=== PATIENT | female | born 1950 | race Caucasian/White ===

== ENCOUNTER 2017-03-06 10:13 | Inpatient (IN) | payer OTHER, MEDICARE ==
[2017-01-29 09:02] VITALS: Ht 157.5 cm; Wt 58.2 kg
--- NOTE | 2017-01-29 09:29 | PAT Medication Instructions ---
Service Date Jan 29, 2017. Current Home Medication List Aspirin (Aspirin Ec), 325-650 MG PO PRN Medication Instructions For Your Scheduled Surgery - Hold the following medications 10 days prior to surgery: Aspirin (Aspirin Ec), 325-650 MG PO PRN - Take the following medications the morning of surgery with a sip of water: Tylenol (if needed) - Take the following medications as scheduled the night before surgery: Tylenol (if needed) If you have any questions please call us at [phone] or [phone] ( Milly) or [phone]
[2017-01-29 09:42] LABS: BASO % 0.6 %; BASO ABS # 0.03 K/uL (0-0.2); COMPLETE YES; EOS % 1.7 %; HEMATOCRIT 42.9 % (37-47); IG% 0.2 %; LYMPH % 35.1 %; LYMPH ABS # 1.89 K/uL (1.2-3.4); MEAN CORPUSCULAR HEMOGLOBIN 28.9 pg (25-34); MEAN PLATELET VOLUME 9.5 fL (7.4-10.4); MONO % 5.6 %; NEUT % 56.8 %; PLATELET COUNT 281 K/uL (130-400); RED BLOOD COUNT 5.05 M/uL (4.2-5.4); WHITE BLOOD COUNT 5.39 K/uL (4.8-10.8)
--- NOTE | 2017-01-29 09:49 | DIAGNOSTIC IMAGING REPORT ---
CHEST PREADMISSION(PA/LAT) HISTORY: Preop. COMPARISON: Chest 11/01/2014. FINDINGS: The lungs are clear. Cardiac silhouette is normal in size. No pleural effusions. No pneumothorax. IMPRESSION: No acute process. Electronically signed by: Donaldo Saxena M.D. 01/29/2017 9:48 AM Dictated Date/Time: 01/29/2017 9:46 AM
[2017-01-29 09:55] LABS: PROTHROMBIN TIME (PATIENT) 11.1 SECONDS (9.0-12.0)
[2017-01-29 10:04] LABS: BLOOD UREA NITROGEN 18 mg/dl (7-18); BUN/CREATININE RATIO 23.7 (10-20); C-REACTIVE PROTEIN < 0.29 mg/dl (0-0.29); CALCIUM 8.8 mg/dl (8.5-10.1); CARBON DIOXIDE 28 mmol/L (21-32); CHLORIDE 106 mmol/L (98-107); CREATININE 0.74 mg/dl (0.60-1.20); GLUCOSE 91 mg/dl (70-99); POTASSIUM 4.2 mmol/L (3.5-5.1); SODIUM 140 mmol/L (136-145)
--- NOTE | 2017-03-02 23:36 | HISTORY & PHYSICAL EXAMINATION ---
DATE OF ADMISSION: 03/06/2017 CHIEF COMPLAINT: Left knee pain and discomfort. HISTORY OF PRESENT ILLNESS: A 66-year-old female from [place], who presents for treatment for her left knee. She has a long history of left knee pain and discomfort, dating back to over 10 years ago. She did have a right knee replacement at [facility] 6 or 7 years ago and has done relatively well. She was troubled initially, but doing well now. Her left knee pain has just become more incapacitating. It hurts all the time. The more she walks, the more it hurts. It is mostly lateral-sided pain. She cannot do the things she would like to do and would like to have her left knee replaced. She comes here, as she does have a home in [place] as well. PAST MEDICAL HISTORY: Past medical history is significant for gastroesophageal reflux disease. PAST SURGICAL HISTORY: Include right knee replacement 6 to 7 years ago at [facility]. ALLERGIES: None. CURRENT MEDICATIONS: None. SOCIAL HISTORY: A 66-year-old female patient from [place]. Also has a home in [place] area. She is . FAMILY HISTORY: Noncontributory. REVIEW OF SYSTEMS: Negative for diabetes, neurologic problems, vascular problems or bleeding disorders. Denies any chest pain. No shortness of breath. No history of DVT or PE. PHYSICAL EXAMINATION: GENERAL: Reveals a healthy pleasant, middle-aged female. She looks to be in pretty good health. HEENT: Benign. NECK: Supple. No lymphadenopathy. LUNGS: Clear to auscultation. HEART: Regular rate and rhythm. ABDOMEN: Soft, nontender, nondistended. EXTREMITIES: Grossly neurovascularly intact, except as follows: Examination of the left lower extremity reveals the patient walks with valgus alignment to her left knee. It goes into further valgus with weightbearing. Range of motion is 0-120. No instability. She has a little subluxation of her patella with terminal knee extension and a positive J-sign. X-RAYS: X-rays of the left knee were reviewed. It shows advanced left lateral compartment DJD. She has got a valgus aligned knee. She has got complete loss of her lateral joint space. The patella was pretty well centered in the trochlea. She does have an uncemented right knee replacement, it looks okay. There might be a little bit of polyethylene wear. ASSESSMENT: A 66-year-old female, quite healthy, is status post a right knee replacement with advanced left knee degenerative joint disease. She has failed conservative treatment and would like her left knee replaced. She comes here, as she has got a home in [place] and likely, will move here more permanently in the future. PLAN: We will proceed with left knee replacement. The risks and benefits of left total knee replacement were explained to the patient, including, but not limited to, DVT, PE, , infection, neurologic injury, vascular injury, bleeding problem, pain, limited range of motion, stiffness, motion, stiffness, failure to relieve symptoms, incomplete relief of symptoms, need for further surgery in the future, fracture, leg length inequality, nerve palsy, etc. The patient understands and desires to proceed. Informed consent was obtained. I did explain to her, with her valgus knee, she is at increased risk of peroneal nerve palsy and we will do all that we can to prevent that. As far as discharge plans, she will likely be discharged to home. Her can assist in her care.
[2017-03-06] VITALS (7 sets, daily range): BP systolic 94–165; BP diastolic 60–83; PULSE 57–87; TEMP 36.5–37; O2SAT 95–100
[~2017-03-06] VITALS: Ht 157.5 cm; Wt 58.2 kg
[~2017-03-06 10:13] MED LIST: ACETAMINOPHEN 500 MG TAB PO SCH; ASPI325T39 PO; ATROPINE SULFATE 0.1 MG/ML 5ML SYR IV PRN; BUPIVACAINE 0.25% 30 ML VIAL ONE; BUPIVACAINE 0.5 % 5 MG/1 ML PF 10ML VIAL ONE; BUPIVACAINE LIPOSOME 266 MG, BUPIVACAINE/EPINEPHRINE INJ 50 ML, SODIUM CHLORIDE 0.9% PF... INFIL SCH; CEFAZOLIN 2000 MG/60 ML D5W 60 ML IV SCH; EpHEDrine SULFATE INJ 50 MG/ML AMP IV PRN; FAMOTIDINE 20 MG TAB PO SCH; FENTANYL CITRATE INJ 50 MCG/1 ML 2 ML VIAL IV PRN; GABAPENTIN 300 MG CAP PO SCH; LACTATED RINGER'S 1000ML 1,000 ML IV SCH; LACTATED RINGER'S 1000ML 500 ML IV ONE; LACTATED RINGER'S 1000ML IV SCH; METOCLOPRAMIDE HCL 10 MG TAB PO SCH; ONDANSETRON INJ 2 MG/ML 2 ML VIAL IV PRN; SCOPOLAMINE 1.5 MG TDSY TD SCH; TRANEXAMIC ACID INJ 1,000 MG in SODIUM CHLORIDE 0.9% 100ML 100 ML IV SCH
--- NOTE | 2017-03-06 10:53 | History & Physical Bridge Note ---
H&P Re-Evaluation Bridge Note: I have examined the patient, reviewed the History & Physical and in the interval since the performance of the History & Physical I have noted the following changes of clinical significance: No changes noted
[2017-03-06] MEDS ORDERED: FENTANYL CITRATE INJ 50 MCG/1 ML 2 ML VIAL ONE (11:53)
[2017-03-06] MEDS ORDERED: MIDAZOLAM HCL 1 MG/ML 2ML VIAL ONE ×2 (11:53)
[2017-03-06] MEDS ORDERED: SODIUM CHLORIDE 0.9% PF 50 ML VIAL ONE (13:11)
[2017-03-06] MEDS ORDERED: BUPIVACAINE/EPINEPHRINE 0.25% 1:200,000 30 ML VIAL ONE (13:11)
[2017-03-06] MEDS ORDERED: BACITRACIN 50000 UNIT VIAL ONE (13:11)
[2017-03-06] MEDS ORDERED: BUPIVACAINE LIPOSOME 1/3% 266 MG/20 ML VIAL INFIL ONE (13:12)
[2017-03-06] MEDS ORDERED: PHENYLEPHRINE 100MCG/ML 5ML SYR ONE (14:40)
[2017-03-06] MEDS ORDERED: LIDOCAINE HCL 2% 2 ML VIAL (20MG/ML) ONE (14:40)
[2017-03-06] MEDS ORDERED: PROPOFOL IV EMULSION 10 MG/ML 20 ML VIAL IV ONE (14:40)
--- NOTE | 2017-03-06 14:54 | [facility] Post Operative Brief Note ---
Immediate Operative Summary Operative Date Mar 06, 2017. Pre-Operative Diagnosis Left Knee Advanced Degenerative Joint Disease Post-Operative Diagnosis Left Knee Advanced Degenerative Joint Disease Procedure(s) Performed Left Total Knee Arthroplasty Surgeon Dr. Tubbs Primer Inspector Surgeon(s) BRIANNE Ayala Estimated Blood Loss 50 ml Findings Left Knee DJD Fluids (cc crystalloids) 2000 cc Specimens A. Left Knee Bone and Tissue Drains None Anesthesia Spinal Complication(s) None Disposition Recovery Room / PACU
[2017-03-06] MEDS ORDERED: MAGNESIUM HYDROXIDE SUSP 30 ML UDC PO PRN (15:00)
[2017-03-06] MEDS ORDERED: BISACODYL 10 MG SUPP PR PRN (15:00)
[2017-03-06] MEDS ORDERED: ZOLPIDEM TARTRATE 5 MG TAB PO PRN (15:00)
[2017-03-06] MEDS ORDERED: ONDANSETRON INJ 2 MG/ML 2 ML VIAL IV PRN (15:00)
[2017-03-06] MEDS ORDERED: SILVER SULFADIAZINE 1% CR 50 GM JAR EXT PRN (15:00)
[2017-03-06] MEDS ORDERED: ALUMINUM/MAGNESIUM/SIMETH (MAALOX MAX) 30 ML UDC PO PRN (15:00)
[2017-03-06] MEDS ORDERED: METOCLOPRAMIDE HCL INJ 5 MG/ML 2 ML VIAL IV PRN (15:00)
[2017-03-06] MEDS ORDERED: MoRPHine SULFATE 2 MG/ML CARP IV PRN (15:00)
--- NOTE | 2017-03-06 15:31 | Anesthesiology Progress Note ---
Anesthesia Post Op Note Date & Time Mar 06, 2017 at 15:30 Vital Signs Pain Intensity: 0 Vital Signs Past 12 Hours Date Time Temp Pulse Resp B/P Pulse Ox O2 Delivery O2 Flow Rate FiO2 03/06/17 15:20 86 22 123/63 96 Nasal Cannula 2 03/06/17 15:10 83 20 123/70 100 Nasal Cannula 2 03/06/17 15:00 36.5 99 20 151/67 99 Nasal Cannula 2 03/06/17 10:55 36.7 70 18 165/83 96 Room Air Notes Mental Status: alert / awake / arousable, participated in evaluation Pt Amnestic to Procedure: Yes Nausea / Vomiting: adequately controlled Pain: adequately controlled Airway Patency, RR, SpO2: stable & adequate BP & HR: stable & adequate Hydration State: stable & adequate Neuraxial Anesthesia: was administered, sensory block is resolving Anesthetic Complications: no major complications apparent
--- NOTE | 2017-03-06 15:34 | DIAGNOSTIC IMAGING REPORT ---
LEFT KNEE 2 VIEWS History: Left total knee arthroplasty. Degenerative arthritis. Postop. FINDINGS: The patient is status post a left total knee arthroplasty. The hardware is intact. No fracture or dislocation. Skin loni are in place. IMPRESSION: Left total knee arthroplasty. No evidence for hardware complication. Electronically signed by: Donaldo Saxena M.D. 03/06/2017 3:32 PM Dictated Date/Time: 03/06/2017 3:32 PM
[2017-03-06] MEDS: CHECK SCOPOLAMINE PATCH PLACEMENT SCH ×2 (16:00→23:43)
[2017-03-06] MEDS: FERROUS GLUCONATE 324 MG TAB PO SCH (18:17)
[2017-03-06] MEDS: KETOROLAC TROMETHAMINE 15 MG/ML VIAL IV. SCH ×2 (18:17→23:43)
[2017-03-06] MEDS: D5W AND 1/2NSS + 20MEQ KCL 1,000 ML IV SCH (18:18)
--- NOTE | 2017-03-06 18:35 | OPERATIVE REPORT ---
DATE OF OPERATION: 03/06/2017 SURGEON: Nadeem Tubbs MD PIPE BUFFER: BRIANNE Macdonald PREOPERATIVE DIAGNOSIS: Left knee degenerative joint disease. POSTOPERATIVE DIAGNOSIS: Same. PROCEDURE PERFORMED: Left cemented posterior stabilized total knee arthroplasty. COMPLICATIONS: None. ESTIMATED BLOOD LOSS: 50 mL. FLUID REPLACEMENT: 2000 mL crystalloid fluid replacement. ANESTHESIA: Spinal with adductor canal block. DRAINS: None. SPECIMENS: Left knee sent for pathology. TOURNIQUET TIME: 52 minutes at 300 mmHg. OPERATIVE INDICATIONS: The patient is a 66-year-old fairly active female who has had a long history of knee problems. She underwent a right knee replacement 6-7 years ago at [facility]. She has done well from this overall. Over the years she has developed increased pain, discomfort and instability in her left knee. She has developed progressive valgus deformity and the knee was unstable. She elected to a surgical treatment. OPERATIVE FINDINGS: Operative findings revealed advanced left knee DJD. She had extensive grade 4 [id number] disease and eburnation of the lateral femoral condyle and lateral tibial plateau. She had a fixed valgus deformity to her knee. Finally, she had a fairly lax knee with about 10 degrees of hyperextension. Moderate-sized knee joint effusion. OPERATIVE IMPLANTS: Operative implants consisted of: 1. Biomet Vanguard size 60 left posterior stabilized femoral component. 2. Biomet size 63 tibial tray. 3. A 12 mm posterior stabilized polyethylene insert. 4. A 25 x 8 All-Poly patella. OPERATIVE PROCEDURE: The patient taken to the operating room, identified and placed on the operating table in supine position. All contact areas were appropriately padded. IV antibiotics were provided by anesthesia team. A spinal anesthetic and adductor canal block had been provided in the holding area. Akhtar catheter was placed in sterile fashion. A left thigh tourniquet was then placed. The left lower extremity was then prepped and draped in the usual sterile fashion. Left leg was elevated and exsanguinated with Esmarch and tourniquet was placed at 300 mmHg. An anterior approach to the left knee was then performed through a longitudinal incision centered over the patella. Sharp dissection was carried out through the subcutaneous tissue down to the level of the extensor mechanism. A medial parapatellar arthrotomy incision was made. Some subperiosteal dissection was carried out medially. The fat pad was resected from beneath the patellar tendon. The lateral patellofemoral ligament was released. The patella was everted and knee was flexed. The osteophytes were taken off the distal femur. The ACL and PCL were then released from the distal femur and the tibia subluxated anteriorly. The external tibial alignment jig was then placed in the anterior face of the tibia and adjusted 12 mm medially. Proximal tibial cut was made to remove about 3-4 mm of bone from the medial side. The tibia was sized to a size 63. Attention was then drawn to the femur. The distal femur was entered with a sharp drill. Intramedullary canal was suctioned. A left 5 degree valgus cutting guide was placed. Distal femoral cutting block was pinned in place. Distal femoral cut was made to take an additional 3 mm of bone off the distal femur. Even doing this we took a fairly minimal bone cut off via distal lateral femoral condyle. I felt this was the minimum that we could take and get good bone contact and I did not want to elevate her joint line any further. The knee was brought down to full extension. I did release some of the IT band in order to equalize the extension gap. I did not need to release the posterolateral side of the knee as it was already fairly lax, actually did hyperextend. The knee was flexed. The femur was sized to a size 60. We did downsize this slightly. The AP cutting block was pinned parallel to the epicondylar axis, which was 5 degrees of external rotation. The anterior cut, anterior chamfer, posterior cut, posterior chamfer cuts were made. Box cutting guide was placed and adjusted slightly lateral and the box cut was made. The knee was flexed. The remnants of the medial and lateral menisci were excised. The osteophytes were taken off the posterior aspect of the femur. Trial femoral component, tibial tray was pinned in maximum external rotation and drill and stem punch were used to create defect in proximal tibia for the tibial tray. Of note, I did have to release the popliteus tendon in order to equalize the flexion gaps. The knee was then trialed and the 12 mm insert fit most appropriately. The knee got an extension but did not have a tendency to hyperextend it preoperatively. The knee was stable and we elected to use these implants. Attention was then drawn to the patella. The patella was cleaned of all soft tissues. Patellar thickness measured about 18 mm in maximum thickness and was cut down to 12. It was sized to a size 25 patella. It was quite small. The lug holes were drilled through the patella. The lateral osteophyte was removed. Patella button was placed. Knee was taken through range of motion and the patella tracked nicely with no thumbs test. Attention was then drawn towards placement of permanent components. All trial components were removed. A bone plug was placed in the distal femur to limit blood loss. A double batch of Palacos G cement was mixed. A left side 60 posterior stabilized femoral component, size 63 tibial tray, a 12 mm posterior stabilized polyethylene insert, and a 25 x 8 All-Poly patella was then cemented in place. Knee was brought out into full extension until cement hardened. A final cement check was then performed. Pericapsular tissues were injected with 100 mL of a combination of 20 mL of Exparel, 30 mL of normal saline, 50 mL of 0.25% Marcaine with epinephrine. The patient did receive 1 gram of tranexamic acid. The tourniquet time of 52 minutes. Hemostasis was assured with use of electrocautery. The extensor mechanism was then closed with a combination of #1 PDS suture and #1 Vicryl suture in a [id number] fashion. The extensor mechanism was checked and found to be intact. The subcutaneous tissues were then closed with 2-0 Dexon suture in a buried interrupted fashion. Skin was closed skin loni. Leg was then cleaned and dried and a sterile dressing of Xeroform, 4 x 4s, sterile cast padding and Edinson bandage were applied. The patient was then transferred to the recovery room in stable condition. The patient tolerated the procedure well with no complications. All needle and sponge counts were correct at the end of the operation. I attest to the content of the Intraoperative Record and any orders documented therein. Any exceptio ns are noted below.
[2017-03-06] MEDS ORDERED: TRANEXAMIC ACID INJ 1,000 MG in SODIUM CHLORIDE 0.9% 100ML 100 ML IV SCH (20:00)
[2017-03-06] MEDS: CEFAZOLIN IV 1,000 MG in DEXTROSE 5% 50ML 50 ML IV SCH (20:46)
[2017-03-06] MEDS: DOCUSATE SODIUM 100 MG CAP PO SCH (20:51)
[2017-03-06] MEDS: ACETAMINOPHEN 500 MG TAB PO SCH (21:33)
[2017-03-06] MEDS: ASPIRIN 325 MG ECTAB PO SCH (21:33)
[2017-03-07] MEDS: D5W AND 1/2NSS + 20MEQ KCL 1,000 ML IV SCH ×2 (03:32→13:47)
[2017-03-07] MEDS: CEFAZOLIN IV 1,000 MG in DEXTROSE 5% 50ML 50 ML IV SCH (03:32)
[2017-03-07 03:54] VITALS: BP 93/61; PULSE 63; TEMP 36.8; O2SAT 97
[2017-03-07 05:32] LABS: HEMATOCRIT 34.8 % (37-47); MEAN CELL VOLUME 85.9 fL (80-100); MEAN CORPUSCULAR HEMOGLOBIN 27.9 pg (25-34); MEAN CORPUSCULAR HGB CONC 32.5 g/dl (32-36); MEAN PLATELET VOLUME 9.1 fL (7.4-10.4); PLATELET COUNT 228 K/uL (130-400); RED BLOOD COUNT 4.05 M/uL (4.2-5.4); WHITE BLOOD COUNT 6.17 K/uL (4.8-10.8)
[2017-03-07] MEDS: ACETAMINOPHEN 500 MG TAB PO SCH ×3 (05:43→21:37)
[2017-03-07] MEDS: KETOROLAC TROMETHAMINE 15 MG/ML VIAL IV. SCH ×3 (05:43→17:54)
[2017-03-07 06:14] LABS: BUN/CREATININE RATIO 16.3 (10-20); CALCIUM 7.9 mg/dl (8.5-10.1); CREATININE 0.77 mg/dl (0.60-1.20); POTASSIUM 4.2 mmol/L (3.5-5.1)
[2017-03-07 07:20] VITALS: BP 114/69; PULSE 70; TEMP 36.6; O2SAT 96
[2017-03-07] MEDS: CHECK SCOPOLAMINE PATCH PLACEMENT SCH ×2 (08:37→16:05)
[2017-03-07] MEDS: PANTOprazole SOD 40 MG TAB PO SCH (08:38)
[2017-03-07] MEDS: ASPIRIN 325 MG ECTAB PO SCH ×2 (08:38→21:37)
[2017-03-07] MEDS: MULTIVITAMIN TAB PO SCH (08:38)
[2017-03-07] MEDS: FERROUS GLUCONATE 324 MG TAB PO SCH ×3 (08:38→17:54)
[2017-03-07] MEDS: DOCUSATE SODIUM 100 MG CAP PO SCH ×2 (08:38→21:37)
--- NOTE | 2017-03-07 11:09 | Anesthesiology Progress Note ---
Anesthesia Post Op Note Date & Time Mar 07, 2017 at 11:07 Vital Signs Pain Intensity: 3.0 Vital Signs Past 12 Hours Date Time Temp Pulse Resp B/P Pulse Ox O2 Delivery O2 Flow Rate FiO2 03/07/17 07:20 36.6 70 20 114/69 96 Room Air 03/07/17 07:15 Room Air 03/07/17 03:54 36.8 63 16 93/61 97 Room Air 03/06/17 23:26 36.6 73 16 94/60 96 Room Air Notes Mental Status: alert / awake / arousable, participated in evaluation Pt Amnestic to Procedure: Yes Nausea / Vomiting: adequately controlled Pain: adequately controlled Airway Patency, RR, SpO2: stable & adequate BP & HR: stable & adequate Hydration State: stable & adequate Neuraxial Anesthesia: sensory block resolved Anesthetic Complications: no major complications apparent
[2017-03-07 11:13] VITALS: BP 117/73; PULSE 76; TEMP 36.8; O2SAT 99
[2017-03-07] MEDS ORDERED: ASPEC325 PO (13:27)
[2017-03-07] MEDS ORDERED: ULT50X PO (13:27)
[2017-03-07] MEDS ORDERED: ACET-1138 PO (13:27)
--- NOTE | 2017-03-07 13:29 | Discharge Instructions ---
Discharge Instructions Date of Service Mar 07, 2017. Admission Reason for Admission: Left Knee Degenerative Joint Disease Discharge Discharge Diagnosis / Problem: Left Knee Replacement Discharge Goals Goal(s): Decrease discomfort, Improve function, Increase independence, Improve disease control, Therapeutic intervention Activity Recommendations Activity Limitations: per Instructions/Follow-up section Weightbearing Status: Left weightbearing . Instructions / Follow-Up Instructions / Follow-Up ACTIVITY RECOMMENDATIONS: Physical Therapy: * You will go to physical therapy three times each week for four to six weeks after your surgery in order to regain your knee range of motion and to retrain your knee to work properly. * It is just as important to make sure you are getting your knee perfectly straight as it is to regain your knee bend. * Taking a pain pill an hour before therapy can help you have a more productive and comfortable therapy session. Home Exercise: * You were shown a series of exercises (heel props, heel slides, etc.) in the hospital. Do these exercises three to four times each day including the exercises you were shown in physical therapy. Walking: * Get up and walk several times each day. For the first four weeks, try not to stand or walk for more than one hour at a time. If you do stand or walk for more than one hour, you will not hurt anything, but your knee and leg will likely swell. * As you feel comfortable, you may change from the walker or crutches to a cane and then to independent walking. MEDICATIONS: New Medicine: * You will likely be taking one or more of these medications: 1. Tramadol - A quick and shorter-acting pain medication. Take one to two tablets every four to six hours to lessen your pain. 2. Aspirin - Thins your blood to lessen the chance of forming a blood clot. * The most common side effects of pain medicine and iron are nausea and constipation. If nausea or constipation is too much of a problem or if you have any questions about your new medicines or doses, call [facility] at . We will try to help you manage these issues. VERY IMPORTANT TO READ AND REVIEW" Pain: * The immediate post-operative period after knee replacement surgery is often quite painful. * You are given a prescription for pain medicine. You should take it, as directed, when you need it, especially before physical therapy and before going to bed. Pain that interferes with sleep is very common and can last several months. * You will likely need pain medicine for the first four to six weeks. It will not stop all of the pain. The pain will lessen and as you feel better, you may change to milder pain medicine such as Tylenol. * The most common side effects of pain medicine are nausea and constipation, so don't take more than you need. SPECIAL CARE INSTRUCTIONS: TEDs/Elastic Stockings: * The white elastic stockings help limit swelling and prevent blood clots from forming in your legs. The more you wear them, the more they work. * Wear them for six weeks after knee replacement surgery and four weeks after partial knee replacement. Prevention of Infection: * Take antibiotics one hour before any dental cleaning, dental work, urological procedure, gastrointestinal procedure or any invasive surgery in order to prevent your new joint from getting infected. * You may get the antibiotics from the doctor performing the procedure or you may call our office at before and we will call in a prescription to the pharmacy of your choice. Things to Watch For: * Drainage from the incision site that occurs more than one week after your surgery. * Severely increased knee/leg pain or swelling. * Increased redness at the incision site. * Fever above 102 degrees Fahrenheit. * Unusual chest pain or shortness of breath. * Unusual pain or burning with urination. Call [facility] at with any of the above problems or if you have any questions about your medicines or recovery. FOLLOW UP VISIT: Make an appointment to see your doctor for approximately two weeks after surgery for a progress check and staple removal by calling the office at . Current Hospital Diet Patient's current hospital diet: Regular Diet Discharge Diet Recommended Diet: Regular Diet Procedures Procedures Performed: Left Total Knee Arthroplasty Pending Studies Studies pending at discharge: no Medical Emergencies . Who to Call and When: Medical Emergencies: If at any time you feel your situation is an emergency, please call [phone] immediately. . Non-Emergent Contact Non-Emergency issues call your: Surgeon . "Provider Documentation" section prepared by Nadeem Tubbs. . VTE Core Measure Inpt VTE Proph given/why not?: Other Anticoagulation, T.E.D. Stockings, SCD's
--- NOTE | 2017-03-07 13:50 | PROGRESS NOTE ---
DATE: 03/07/2017 SUBJECTIVE: A 66-year-old white female, postop day #1 from left knee replacement. She is doing well. Having some pain but reasonably well controlled. No chest pain or shortness of breath. Not feeling dizzy or lightheaded. OBJECTIVE: VITAL SIGNS: Temperature equals 36.8. Vital signs stable. PHYSICAL EXAMINATION: GENERAL: Reveals a pleasant middle-aged female. She is sitting up in her bedside chair. Just finished her lunch. LUNGS: Clear to auscultation. HEART: Regular rate and rhythm. ABDOMEN: Soft, nontender, nondistended. EXTREMITIES: Grossly neurovascularly intact except as follows: Examination of the left lower extremity reveals the dressing to be in place. She can dorsiflex and plantarflex her foot and toes appropriately. She is neurologically intact. LABORATORY DATA: Hemoglobin 11.3. Hematocrit 34.8. Electrolytes are stable. ASSESSMENT: A 66-year-old white female, postop day #1 from a left knee replacement, doing pretty well. She is neurologically intact. Pain is reasonably well controlled. PLAN: 1. DVT prophylaxis including thigh-high TEDs, SCDs, and aspirin twice a day. 2. PT/OT. Weightbearing as tolerated. Left total knee protocol. 3. Pain control. She is doing pretty well with current pain regimen. 4. Disposition: She is planning to be discharged to home with some home health once adequately recovered.
[2017-03-07 14:56] VITALS: BP 121/72; PULSE 79; TEMP 36.8; O2SAT 99
[2017-03-07] MEDS: TRAMADOL HCL 50 MG TAB PO PRN (16:05)
[2017-03-07 23:46] VITALS: BP 121/69; PULSE 72; TEMP 36.8; O2SAT 97
[2017-03-08] MEDS: KETOROLAC TROMETHAMINE 15 MG/ML VIAL IV. SCH ×3 (00:27→11:28)
[2017-03-08] MEDS: CHECK SCOPOLAMINE PATCH PLACEMENT SCH (00:28)
[2017-03-08] MEDS: ACETAMINOPHEN 500 MG TAB PO SCH (05:42)
[2017-03-08 06:03] VITALS: BP 104/66; PULSE 72; TEMP 36.7; O2SAT 95
[2017-03-08] MEDS: FERROUS GLUCONATE 324 MG TAB PO SCH ×2 (07:29→13:10)
[2017-03-08] MEDS: DOCUSATE SODIUM 100 MG CAP PO SCH (07:29)
[2017-03-08] MEDS: ASPIRIN 325 MG ECTAB PO SCH (07:29)
[2017-03-08] MEDS: PANTOprazole SOD 40 MG TAB PO SCH (07:29)
[2017-03-08] MEDS: MULTIVITAMIN TAB PO SCH (07:29)
--- NOTE | 2017-03-08 09:24 | PROGRESS NOTE ---
DATE: 03/08/2017 SUBJECTIVE: A 66-year-old female postop day 2 from a left knee replacement. She is doing well. Pain seems to be a bit better today. Therapy went well. Denies any chest pain or shortness of breath. Not feeling dizzy or lightheaded. OBJECTIVE: VITAL SIGNS: Temperature is 36.7. Vital signs stable. PHYSICAL EXAMINATION: GENERAL: Reveals a pleasant middle-aged female. The patient is sitting up in her bedside chair and looks quite comfortable. EXTREMITIES: Examination of left lower extremity reveals the dressing to be clean, dry and intact. The patient can do a good straight leg raise. She can dorsiflex and plantarflex her foot appropriately. NEUROLOGIC: She is neurologically intact. ASSESSMENT: A 66-year-old white female postop day 2 from a left knee replacement, doing well. Pain is controlled. Therapy went pretty well. PLAN: 1. DVT prophylaxis including thigh-high TEDs, SCDs, and aspirin twice a day. 2. PT/OT. Weightbearing as tolerated. Left total knee protocol. 3. Pain control, doing pretty well with current pain regimen. 4. Disposition: We will plan discharge to home after therapy today and she is going to do home health. I will see her back 2 weeks postop.
[2017-03-08 10:10] VITALS: BP 104/66; PULSE 72; TEMP 36.7; O2SAT 95
[2017-03-08] MEDS: TRAMADOL HCL 50 MG TAB PO PRN (13:25)
--- NOTE | 2017-03-14 15:26 | DISCHARGE SUMMARY ---
ADMITTING PHYSICIAN AND SURGEON: Dr. Tubbs. ADMITTING DIAGNOSIS: Left knee degenerative joint disease. SURGERY PERFORMED: Left total knee arthroplasty. SECONDARY DIAGNOSIS: Include gastroesophageal reflux disease. CONSULTS: None obtained. HISTORY AND PHYSICAL EXAMINATION: Well documented in the patient's chart. HOSPITAL COURSE: The patient was admitted on 03/06/2017 underwent total knee arthroplasty. She tolerated the procedure well. There were no complications. She was transferred to the PACU postoperatively and later to the orthopedic floor for further care. She was given Ancef for antibiotic prophylaxis, PRABHU stockings, SCDs and aspirin for DVT prophylaxis. Hemoglobin, hematocrit and vital signs were monitored during her hospital stay and remained stable. She developed some postoperative anemia, did not require any blood transfusions. There were no complications. By postoperative day 2, she was tolerating a general diet, and pain was controlled with oral pain medicine. She was participating in physical therapy and had no signs or symptoms of deep vein thrombosis. On postop day 2, she was discharged home and set up with home health services. She was given printed discharge instructions including prescriptions for extra strength Tylenol, aspirin 325 mg b.i.d., tramadol. Continue physical therapy, weightbearing as tolerated and PRABHU stockings. Follow up in 10-12 days or sooner if there are any problems or concerns.
== END 2017-03-08 13:28 | disposition home health service (06) | DRG 470 ==
LOC: ENRESERVDT → ENRESERVTM → C.ACU 10:13 → C.3E 11:10
PROVIDERS: ADMIT Orthopaedic Surgery Sports Medicine; ATTEND Orthopaedic Surgery Sports Medicine
PROC: 0SRD0J9 Replacement of Left Knee Joint with Synthetic Substitute, Cemented, Open Approach (ICD-10-PCS; principal; 2017-03-06 12:15)
DX: M17.12 Unilateral primary osteoarthritis, left knee (principal); Z96.651 Presence of right artificial knee joint; K21.9 Gastro-esophageal reflux disease without esophagitis